=== PATIENT | male | born 1950 | race Caucasian/White ===

== ENCOUNTER 2020-04-21 18:13 | Inpatient (IN) | payer MEDICARE, OTHER ==
[~2020-04-21] VITALS: Ht 167.6 cm; Wt 92.1 kg
[2020-04-21 18:32] VITALS: BP 162/97
[2020-04-21] MEDS ORDERED: LISINOPRIL10 MG PO (18:41)
[2020-04-21] MEDS ORDERED: LEVO-T50 MCG PO (18:41)
[2020-04-21] MEDS ORDERED: SIMVASTATIN80 MG PO (18:41)
[2020-04-21] MEDS ORDERED: ASA81BEC PO (18:42)
[2020-04-21 19:05] LABS: ABSOLUTE BASOPHILS 0.1 thou/uL (0.0-0.2); ABSOLUTE EOSINOPHILS 0.2 thou/uL (0.0-0.7); ABSOLUTE LYMPHOCYTES 1.7 thou/uL (0.8-5.3); ABSOLUTE MONOCYTES 0.9 thou/uL (0.0-1.2); ABSOLUTE NEUTROPHILS 6.2 thou/uL (1.6-8.1); BASOPHILS 0.8 %; EOSINOPHILS 1.9 %; HEMATOCRIT 42.1 % (42.0-52.0); HEMOGLOBIN 14.2 gm/dL (14.0-18.0); LYMPHOCYTES 19.1 %; MCHC 33.7 g/dL (28.0-37.0); MCV 94.9 fL (80.0-100.0); MONOCYTES 9.6 %; MPV 8.4 fl. (7.2-11.1); NUCLEATED RBCS 0 /100WBC; PLATELET COUNT* 203 thou/uL (150-400); POLYS 68.6 %; RBC 4.43 mil/uL (4.50-6.00); RDW-CV 13.2 % (10.5-14.5); WBC 9.1 thou/uL (4.0-11.0)
[2020-04-21 19:19] LABS: CALCIUM 8.7 mg/dL (8.5-10.1); CREATININE 0.9 mg/dL (0.6-1.3); POTASSIUM 3.7 mmol/L (3.5-5.1)
[2020-04-21 19:23] LABS: ALBUMIN 3.8 g/dL (3.4-5.0); TOTAL BILIRUBIN 0.9 mg/dL (<0.1-1.0); TOTAL PROTEIN 7.1 g/dL (6.4-8.2)
[2020-04-21 21:00] VITALS: BP 139/76
[2020-04-21] MEDS ORDERED: LEVO-T100 MCG PO (21:46)
[2020-04-21] MEDS ORDERED: LOPRESSOR50 MG PO (21:47)
[2020-04-21 21:49] VITALS: BP 150/63
[2020-04-21] MEDS ORDERED: AMBIEN5 MG PO (22:12)
[2020-04-22] VITALS: BP 119/52
[2020-04-22 04:00] VITALS: BP 120/60
[2020-04-22 09:17] LABS: HEMATOCRIT 41.5 % (42.0-52.0); HEMOGLOBIN 13.9 gm/dL (14.0-18.0); MCH 31.7 pg (26.0-34.0); MCHC 33.5 g/dL (28.0-37.0); MCV 94.5 fL (80.0-100.0); MPV 8.2 fl. (7.2-11.1); RBC 4.4 mil/uL (4.50-6.00); RDW-CV 13.2 % (10.5-14.5); WBC 8.4 thou/uL (4.0-11.0)
[2020-04-22 09:26] LABS: CALCIUM 8.6 mg/dL (8.5-10.1); CREATININE 0.7 mg/dL (0.6-1.3); POTASSIUM 3.8 mmol/L (3.5-5.1)
[2020-04-22 10:15] VITALS: BP 136/75
[2020-04-22 12:30] VITALS: BP 144/66
[2020-04-22 16:33] VITALS: BP 139/70
[2020-04-22 19:25] VITALS: BP 126/59
[2020-04-23] VITALS: BP 119/68
[2020-04-23 04:00] VITALS: BP 142/65
[2020-04-23 08:00] VITALS: BP 148/69
[2020-04-23 12:00] VITALS: BP 126/58
--- NOTE | 2020-04-23 12:42 | EKG ---
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
[2020-04-23 16:00] VITALS: BP 112/66
[2020-04-23 20:00] VITALS: BP 149/73
[2020-04-24 00:41] VITALS: BP 118/59
[2020-04-24 04:00] VITALS: BP 141/70
[2020-04-24] MEDS ORDERED: NEBULIZER MISCELL (07:06)
[2020-04-24] MEDS ORDERED: PREDNISONE 10 M10 M1 PO (07:06)
[2020-04-24] MEDS ORDERED: IPRAT-ALBUT 0.5-3 ML INH (07:06)
[2020-04-24] MEDS ORDERED: LEVOFLOXACIN500 MG PO (07:06)
[2020-04-24 08:00] VITALS: BP 166/67
[2020-04-24 13:00] VITALS: BP 130/72
[2020-04-24 13:16] VITALS: BP 130/72
[2020-04-24 13:53] VITALS: BP 130/72
--- NOTE | 2020-04-25 07:50 | CON ---
[address] [address] CONSULTATION Name: PEE DURBIN Room: [address] IN M.R.#: [id number] Admission: 04/22/20 Attend Phys: Aniceto Almanza MD Discharge: 04/24/20 Date of : 48 Report #: [id number] THIS REPORT FOR: //name// cc: FAM - Family physician unknown FAM - Family physician unknown ~ DATE OF SERVICE: 04/22/2020 INDICATION: Chest pain. HISTORY OF PRESENT ILLNESS: The patient is a 69-year-old gentleman with history of coronary artery disease. He had myocardial infarction with percutaneous coronary intervention in 2000. After a failed stress test in 2008, he had percutaneous coronary intervention a second time. He has had no intervention since then. Stress testing last week showed evidence of apical infarct with no evidence of ischemia and mildly decreased left ventricular systolic function. The patient had atypical chest discomfort yesterday associated with acute onset of shortness of breath, lasting approximately 20-25 minutes. The symptoms improved with oxygen and breathing treatments. The patient was admitted to the hospital for further evaluation. Cardiac enzymes are unremarkable x3 sets. EKG shows sinus rhythm with left bundle-branch block, which is old. PAST MEDICAL HISTORY: 1. Coronary artery disease. 2. Chronic obstructive pulmonary disease. 3. History of appendectomy. 4. History of cholecystectomy. 5. Hyperlipidemia. 6. Hypertension. ALLERGIES: None documented. FAMILY HISTORY: Noncontributory. SOCIAL HISTORY: The patient quit smoking approximately 11 years ago. Drinks alcohol occasionally. REVIEW OF SYSTEMS: A 14-point review of systems as per HPI. PHYSICAL EXAMINATION: VITAL SIGNS: Stable. Blood pressure 136/75, pulse is 69 and regular. GENERAL: This is a pleasant gentleman in no distress. Mood and affect appropriate. HEENT: Extraocular muscles intact. [place] [address] CONSULTATION Name: PEE DURBIN Room: [address]#: [id number] Admission: 04/22/20 Attend Phys: Aniceto Almanza MD Discharge: 04/24/20 Date of : 48 Report #: [id number] NECK: Shows no jugular venous distention. There are no carotid bruits. CHEST: Reveals diminished breath sounds throughout with expiratory wheezes. CARDIOVASCULAR: Reveals a regular rhythm with normal S1 and S2. I do not appreciate gallop or murmur. ABDOMEN: Reveals a protuberant abdomen, soft and nontender. EXTREMITIES: Shows no edema. SKIN: Dry. LABORATORY DATA: A 12-lead EKG shows left bundle-branch block with sinus rhythm. Labs are reviewed. Troponins are less than 0.06 on 3 separate occasions. IMPRESSION AND RECOMMENDATIONS: 1. Atypical chest pain. No evidence that this is cardiac in origin. No further workup at this time. 2. Hypertension. Blood pressure adequately controlled on current regimen. 3. Dyslipidemia. Continue current statin agent. 4. Chronic obstructive pulmonary disease, per primary physician. The patient appears stable from a cardiac standpoint. We will sign off and available as needed. <ELECTRONICALLY SIGNED> By: Celso He MD, FACC 04/25/20 0750 1515 1922Celso He MD, FACC /nt
== END 2020-04-24 13:50 | disposition home or self-care (01) | DRG 189 ==
LOC: M.ERS 18:13 → M.TBA-ER 19:48 → M.2W 20:28
PROVIDERS: Internal Medicine; Physician Assistant; ADMIT Internal Medicine; ATTEND Internal Medicine
DX: J96.01 Acute respiratory failure with hypoxia (principal); J44.1 Chronic obstructive pulmonary disease with (acute) exacerbation; I25.10 Atherosclerotic heart disease of native coronary artery without angina pectoris; I10 Essential (primary) hypertension; E78.5 Hyperlipidemia, unspecified; R07.81 Pleurodynia; Z20.828 Contact with and (suspected) exposure to other viral communicable diseases; Z95.5 Presence of coronary angioplasty implant and graft; Z90.49 Acquired absence of other specified parts of digestive tract; Z79.82 Long term (current) use of aspirin; Z79.899 Other long term (current) drug therapy; Z87.891 Personal history of nicotine dependence; Z72.89 Other problems related to lifestyle

== ENCOUNTER 2020-12-25 20:54 | Inpatient (IN) | payer MEDICARE, OTHER ==
[~2020-12-25] VITALS: Ht 167.6 cm; Wt 85.7 kg
[~2020-12-25 20:54] MED LIST: AMBIEN5 MG PO; ASA81BEC PO; IPRAT-ALBUT 0.5-3 ML INH; LEVO-T100 MCG PO; LEVO-T50 MCG PO; LEVOFLOXACIN500 MG PO; LISINOPRIL10 MG PO; LOPRESSOR50 MG PO; NEBULIZER MISCELL; PREDNISONE 10 M10 M1 PO; SIMVASTATIN80 MG PO
[2020-12-25 21:27] LABS: ABSOLUTE BASOPHILS 0.1 thou/uL (0.0-0.2); ABSOLUTE EOSINOPHILS 0.1 thou/uL (0.0-0.7); ABSOLUTE LYMPHOCYTES 1.4 thou/uL (0.8-5.3); ABSOLUTE MONOCYTES 1.3 thou/uL (0.0-1.2); ABSOLUTE NEUTROPHILS 7.4 thou/uL (1.6-8.1); BASOPHILS 0.5 %; EOSINOPHILS 0.8 %; HEMATOCRIT 42.9 % (42.0-52.0); HEMOGLOBIN 14.2 gm/dL (14.0-18.0); LYMPHOCYTES 13.3 %; MCH 31.6 pg (26.0-34.0); MCHC 33.1 g/dL (28.0-37.0); MCV 95.3 fL (80.0-100.0); MONOCYTES 12.7 %; NUCLEATED RBCS 0 /100WBC; PLATELET COUNT* 209 thou/uL (150-400); POLYS 72.7 %; RBC 4.51 mil/uL (4.50-6.00); RDW-CV 13.6 % (10.5-14.5); WBC 10.3 thou/uL (4.0-11.0)
[2020-12-25 21:30] VITALS: BP 112/68
[2020-12-25 21:34] LABS: CALCIUM 8.8 mg/dL (8.5-10.1); CREATININE 0.8 mg/dL (0.6-1.3); POTASSIUM 3.5 mmol/L (3.5-5.1)
[2020-12-25 21:40] LABS: APTT 28.5 Seconds (25.0-31.3); PROTIME 10.9 Seconds (9.20-11.50)
[2020-12-25 21:45] LABS: ALBUMIN 3.6 g/dL (3.4-5.0); TOTAL BILIRUBIN 1.1 mg/dL (<0.1-1.0); TOTAL PROTEIN 6.9 g/dL (6.4-8.2)
[2020-12-25 23:34] VITALS: BP 128/73
[2020-12-25 23:45] VITALS: BP 133/71
[2020-12-26] VITALS (19 sets, daily range): BP systolic 131–157; BP diastolic 66–82
[2020-12-26 04:25] LABS: ANION GAP 11 mmol/L (7-16); BUN 12 mg/dL (7-18); CALCIUM 8.5 mg/dL (8.5-10.1); CHLORIDE 103 mmol/L (98-107); CHOLESTEROL 107 mg/dL (<200); CO2 26 mmol/L (21-32); CREATININE 0.7 mg/dL (0.6-1.3); GLUCOSE 107 mg/dL (70-99); HDL CHOLESTEROL 45 mg/dL (>40); LDL CHOLESTEROL 52 mg/dL (<100); POTASSIUM 3.5 mmol/L (3.5-5.1); SODIUM 140 mmol/L (136-145); TC:HDL 2.4 Ratio (Not establshd); TRIGLYCERIDE 53 mg/dL (<150); TROPONIN-I LEVEL 0.27 ng/mL (<0.06); VLDL 11 mg/dL (<40)
[2020-12-26 04:29] LABS: SERUM ASSESSMENT Clear
[2020-12-26 04:30] LABS: ABSOLUTE EOSINOPHILS 0.1 thou/uL (0.0-0.7); ABSOLUTE LYMPHOCYTES 1.4 thou/uL (0.8-5.3); ABSOLUTE MONOCYTES 1.3 thou/uL (0.0-1.2); ABSOLUTE NEUTROPHILS 6.4 thou/uL (1.6-8.1); BASOPHILS 0.5 %; EOSINOPHILS 0.6 %; HEMATOCRIT 38.6 % (42.0-52.0); HEMOGLOBIN 13.2 gm/dL (14.0-18.0); LYMPHOCYTES 15.1 %; MCH 32.8 pg (26.0-34.0); MCHC 34.2 g/dL (28.0-37.0); MCV 95.8 fL (80.0-100.0); MONOCYTES 14.2 %; NUCLEATED RBCS 0 /100WBC; PLATELET COUNT* 187 thou/uL (150-400); POLYS 69.6 %; RBC 4.03 mil/uL (4.50-6.00); RDW-CV 13.6 % (10.5-14.5); WBC 9.2 thou/uL (4.0-11.0)
--- NOTE | 2020-12-26 08:37 | CARD ---
[address] [address] CARDIAC CATH REPORT Name: PEE DURBIN Room: [address] ADM IN M.R.#: [id number] Admission: 12/25/20 Attend Phys: Paul Maguire MD, F Discharge: Date of : 48 Report #: [id number] THIS REPORT FOR: cc: FAM - Family physician unknown FAM - Family physician unknown Paul Maguire MD [facility] ~ APPROVED REPORT Study performed: 12/25/2020 21:23:09 Patient Details Patient Status: In-Patient Room #: The patient is a 70 year-old male Procedures Performed cath pci Indication Abnormal ECG, Dyspnea, Unstable angina , Chest pain Risk Factors Hypercholesterolemia, Coronary Artery DiseaseHypertension Previous Procedures/Diagnoses Previous PCI Admission/Lab Medications/Medications given during procedure Glycoprotein IllbIlla Inhibitors, Heparin Unfract. Procedure Narrative The patient was brought emergently to the Cardiac Catheterization Laboratory and was prepped and draped in a sterile manner. The right femoral was infiltrated with 1% Lidocaine subcutaneous anesthesia. IV conscious sedation was used throughout procedure with appropriate monitoring and was performed in the presence of a registered nurse who was an independent trained observer other than the physician performing the procedure. A 6 sheath was inserted into the right femoral artery. Coronary angiography was performed using coronary diagnostic catheters. The right coronary system was accessed and visualized with a Diagnostic catheter. The left coronary system was accessed and visualized with a Diagnostic catheter. The left ventricle was accessed and visualized with a Diagnostic catheter. Left ventricular/Aortic Valve gradient assessed via catheter [address] [address] CARDIAC CATH REPORT Name: PEE DURBIN Room: [address] IN .R.#: [id number] Admission: 12/25/20 Attend Phys: Paul Maguire MD, F Discharge: Date of : 48 Report #: [id number] pullback. Left ventriculogram was performed in BLOUNT projection. Closure device was deployed with a 6 Fr Angioseal. The patient tolerated the procedure well and there were no complications associated with the procedure. There was no hematoma. Because of the abnormal takeoff of the RCA from the right coronary cusp, unable to cannulate the RCA with a jr4 catheter. A modified right amplatz catheter was used to engage the RCA. Coronary Angiography The patient's coronary anatomy is right dominant. Diagnostic Cath Left Main 0% stenosis LAD stent in the mid LAD that straddled the takeoff of the second diagonal branch had a 90% restenosis Diagonal 2 medium sized vessel that arose from within the stent in the mid LAD Circumflex stent in the mid circumflex had a 30% restenosis Right Coronary 30% proximal and 40% mid stenosis noted Left Ventriculography The left ventricular ejection fraction is estimated to be 40-45%. Left ventricular wall motion abnormalities are present. There is no mitral insufficiency. moderate hypokinesis of the inferior wall Hemodynamics The left ventricular end diastolic pressure is 14 mmHg. There was no gradient across the aortic valve upon pullback. Pullback from the left ventricle to the aorta revealed no gradient across the aortic valve. PCI Technique Lesion Anticoagulation was achieved with Heparin. bolus of IV aggrastat given Percutaneous coronary intervention was performed on the mid left anterior descending artery segment. The lesion stenosis prior to intervention was 90% with LAURA 3 flow. A xblad4.0 Guide Catheter was used to engage the lm ostium. A bmw Interventional Guidewire was used to cross the lesion. BALLOON DILATION A Balloon catheter 2.5 x 12 mm was inserted and inflated up to 16atm for 15seconds. Repeat angiography revealed the following post-dilatation results: 40% [place] [address] CARDIAC CATH REPORT Name: PEE DURBIN Room: [address] IN [facility].#: [id number] Admission: 12/25/20 Attend Phys: Paul Maguire MD, F Discharge: Date of : 48 Report #: [id number] STENT DEPLOYMENT A drug-eluting stent 3.5 x 30 mm was inserted and inflated up to 20atm for 15seconds. Repeat angiography revealed the following post-stent deployment results: 0% stenosis. Noted to have a 90% stenosis of the ostium of the second diagonal branch secondary to plaque shift while inserting the stent in the LAD. Patient was given 200 mcg. IC nitroglycerin. Final angiography reveals 0 % stenosis with LAURA 3 flow. PCI Technique Lesion 2 Percutaneous Coronary Intervention was performed on the second diagonal branch segment. Percutaneous coronary intervention was performed on the second diagonal branch segment. The lesion stenosis prior to intervention was 90% with LAURA 3 flow. A xblad4.0 Guide Catheter was used to engage the lm ostium. A [employer] Interventional Guidewire was used to cross the lesion. Balloon Dilation A Balloon catheter 2.5 x 8 mm was inserted and inflated up to 16atm for 15seconds. Repeat angiography revealed the following post-dilatation results: 0% stenosis. Final angiography reveals 0 % stenosis with LAURA 3 flow. Conclusion 1. 90% restenosis of a stent in the mid LAD 2. no restenosis of a stent in the mid circumflex artery. 3. successful placement of a drug eluting stent in the mid LAD 4. narrowing of the ostium of the second diagonal branch after LAD stent placement secondary to plaque shift into the second diagonal artery successfully treated by PTCA of the ostium. 5. LVEF 40-45% Recommendations Cardiac Rehabilitation Referral Aggressive Medical Therapy Medications Administered Clopidogrel <ELECTRONICALLY SIGNED> By: Paul Maguire MD, [facility] 12/26/20 0837 0837Dabenjy Maguire MD, FAC /INF
--- NOTE | 2020-12-26 10:48 | EKG ---
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1950 Requested By: Daija Martinez Order Number: [id number] MD: Paul Maguire Measurements Intervals [place] Rate: 129 P: SD: QRS: 43 QRSD: 141 T: 61 QT: 344 QTc: 504 Interpretive Statements sinus tachycardia Paired ventricular premature complexes pac's Left bundle branch block Compared to ECG 04/21/2020 18:27:45 Ventricular and supraventricular premature complex(es) now present Sinus rhythm no longer present Electronically Signed On 12-26-2020 10:48:12 CDT by Paul Maguire [email or web address] <ELECTRONICALLY SIGNED> By: Paul Maguire MD, FAC 12/26/20 1048 02 02 Paul Maguire MD, [facility] /EPI
--- NOTE | 2020-12-26 10:49 | EKG ---
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1950 Requested By: Daija Martinez Order Number: [id number] MD: Paul Maguire Measurements Intervals [place] Rate: 122 P: 87 [place]: 149 QRS: 38 QRSD: 138 T: 51 QT: 349 QTc: 498 Interpretive Statements Sinus tachycardia ventricular premature complexes LBBB Baseline wander in lead(s) V6 Compared to ECG 12/25/2020 21:03:44 no change Electronically Signed On 12-26-2020 10:49:21 CDT by Paul Maguire [email or web address] <ELECTRONICALLY SIGNED> By: Paul Maguire MD, [facility] 12/26/20 1049 13 13 Paul Maguire MD, FAC /EPI
--- NOTE | 2020-12-26 11:37 | EKG ---
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
--- NOTE | 2020-12-26 11:41 | H ---
[place] [address] HISTORY AND PHYSICAL Name: PEE DURBIN Room: [address] ADM IN [place].#: [id number] Admission: 12/25/20 Attend Phys: Paul Maguire MD, F Discharge: Date of : 48 Report #: [id number] THIS REPORT FOR: cc: FAM - Family physician unknown FAM - Family physician unknown Paul Maguire MD [facility] ~ DATE OF SERVICE: 12/25/2020 CARDIOLOGY STAT HISTORY AND PHYSICAL HISTORY OF PRESENT ILLNESS: The patient is a 70-year-old single white male who came to the emergency room complaining of chest pain. Unfortunately, not a lot of his old records available. However, he states that in 2008, he had a heart attack and had a stent placed at [place], [place]. He had an abnormal stress test apparently had another stent placed a year later. He has done well since that time, although he is not very active. He has actually been admitted here to [place] in the past. He was admitted here last April with atypical chest pain and shortness of breath. Recently, the patient denied any increased shortness of breath, although he has a cough. He denies any palpitations, syncope, recent fever, swelling. This evening, he felt a heaviness in his chest, became short of breath. He called EMS and brought here to [place]. He was noted to have an abnormal ECG and cardiology consultation was requested. At this time, his pain is improved. He was given morphine and nitroglycerin in the emergency room. PAST MEDICAL HISTORY: He has had previous appendectomy, cholecystectomy, hypertension, hyperlipidemia. CURRENT MEDICATIONS: Consists of nebulized treatment for COPD, simvastatin, Synthroid, metoprolol, lisinopril, aspirin. ALLERGIES: He has no known drug allergies. FAMILY HISTORY: His mother when she was 38. SOCIAL HISTORY: He is , lives by himself in [place]. Quit smoking 10 years ago. Occasionally drinks alcohol. REVIEW OF SYSTEMS: He is overweight being 5 feet 8 inches, 250 pounds. He had a previous history of stroke affecting his right side of his body. No history of asthma, although he does have COPD and uses inhaler. No history of liver disease, kidney disease, cancer, chronic skin condition, psychiatric illness. PHYSICAL EXAMINATION: GENERAL: Revealed an obese elderly male who appeared in no acute distress. VITAL SIGNS: He had a blood pressure of 110/70, pulse is 100, [place] [address] HISTORY AND PHYSICAL Name: PEE DURBIN Room: [address] IN [facility]#: [id number] Admission: 12/25/20 Attend Phys: Paul Maguire MD, F Discharge: Date of : 48 Report #: [id number] unlabored. HEENT: He was anicteric. Conjunctivae are pink. Mucosa moist. NECK: Veins do not appear distended. No carotid bruits. Neck is supple. CHEST: Clear to auscultation. HEART: Regular rate and rhythm without murmur. ABDOMEN: Obese. EXTREMITIES: Had no pitting edema. Posterior tibial pulse 2+ bilaterally. SKIN: Cool and dry. NEUROLOGIC: Nonfocal. LABORATORY DATA: His ECG on admission showed what appeared to represent a sinus rhythm with frequent PVCs and a left bundle-branch block. Previous workup, he had a chest x-ray in the emergency room that showed a calcified aortic knob, clear lung murray, normal heart size. His laboratory: Sodium 142, creatinine 0.8. His liver function studies were normal. Troponins less than 0.06. BNP 454. White blood cell count 10.3, hemoglobin 14.2. His COVID antigen stat test was negative. IMPRESSION AND RECOMMENDATIONS: 1. Unstable angina. Previous stent. Recommend urgent cardiac catheterization. 2. Left bundle branch block. 3. Premature ventricular contractions. 4. Hypertension. The patient is on a beta gavin and LEIGHANN inhibitor. 5. Hyperlipidemia. The patient is on a statin drug. 6. Obesity. 7. Chronic obstructive pulmonary disease. The patient uses inhaler. 8. Previous stroke. The patient does take an aspirin a day. Critical care time was from 10:00 p.m. to 11:30 p.m. for a total of 90 minutes of critical care time. <ELECTRONICALLY SIGNED> By: Paul Maguire MD, [facility] 12/26/20 1141 2205 2226Paul Maguire MD, FAC /nt
[2020-12-26 18:59] LABS: CALCIUM 9.2 mg/dL (8.5-10.1); CREATININE 0.8 mg/dL (0.6-1.3); POTASSIUM 3.7 mmol/L (3.5-5.1)
[2020-12-26 19:02] LABS: MAGNESIUM 1.7 mg/dL (1.8-2.4); PHOSPHORUS* 3.2 mg/dL (2.5-4.9)
[2020-12-27] MEDS ORDERED: CLOPIDOGREL75 MG PO (14:03)
[2020-12-27] MEDS ORDERED: NITROGLYCERIN0.4 MG SUBLING (14:03)
[2020-12-27 14:41] VITALS: BP 122/74
--- NOTE | 2020-12-28 08:33 | D ---
[address] [address] DISCHARGE SUMMARY Name: PEE DURBIN Room: [address] IN M.R.#: [id number] Admission: 12/25/20 Attend Phys: Paul Maguire MD, F Discharge: 12/27/20 Date of : 48 Report #: [id number] THIS REPORT FOR: cc: FAM - Family physician unknown FAM - Family physician unknown Paul Maguire MD [facility] ~ DATE OF DISCHARGE: 12/27/2020 DISCHARGE DIAGNOSES: 1. Unstable angina. 2. Coronary artery disease. 3. Chronic obstructive pulmonary disease. 4. Hypertension. CONSULTANTS: None. PROCEDURES: Emergent left heart catheterization with placement of drug-eluting stent in the left anterior descending artery via the femoral approach. HISTORY OF PRESENT ILLNESS: The patient is a 70-year-old single white male who was brought to the Emergency Room complaining of chest pain. Unfortunately, no old records are available. In 2008, he had a heart attack and had a stent placed in his coronary arteries in [place], [place]. He had normal stress test and a year later had another stent placed in [place], [place]. He has done well since that time, is not very active. He denies any recent chest pain. He does have a history of COPD and has occasional shortness of breath. On the evening of admission, he felt heavy in his chest, became short of breath. He called Paramedics. He was noted to have an abnormal ECG and was asked to see him for further evaluation. When I saw him in the Emergency Room, his pain is actually improved. He denies any palpitations, syncope or bleeding. No trauma to his chest. PAST MEDICAL HISTORY: He has had previous appendectomy, cholecystectomy, hysterectomy, hypertension, hyperlipidemia. MEDICATIONS ON ADMISSION: He has nebulizer treatment for COPD. He is on simvastatin, Synthroid, metoprolol, lisinopril, aspirin. ALLERGIES: He had no known drug allergies. PHYSICAL EXAMINATION: VITAL SIGNS: On admission; his blood pressure 110/70, his pulse is 100, respirations unlabored. CHEST: Distant breath sounds. CARDIOVASCULAR: Regular rate and rhythm. No murmur. ABDOMEN: [place] [address] DISCHARGE SUMMARY Name: PEE DURBIN Room: [address]#: [id number] Admission: 12/25/20 Attend Phys: aPul Maguire MD, F Discharge: 12/27/20 Date of : 48 Report #: [id number] EXTREMITIES: No pitting edema. ECG showed a sinus rhythm with a left bundle branch block and frequent PVCs. Chest x-ray, normal heart size, clear lung murray. Creatinine 0.8. Liver function studies were normal. Troponin less than 0.06. Hemoglobin 14.2. HOSPITAL COURSE: The patient was seen in the Emergency Room. He was noted to have a chronic left bundle branch block. Therefore, a STEMI cannot be excluded. It was decided to take him urgently to the cardiac catheterization lab. I performed cardiac catheterization from the right femoral artery. Results showed a stent in the mid LAD that had 90% restenosis. The stent in the circumflex had no restenosis. The right coronary artery had only 40% stenosis. Ejection fraction was 45%. He was felt to have restenosis of the stent in the LAD. He was then given heparin and Aggrastat. I placed a new drug-eluting stent in the mid LAD. During placement of stent, there was compromise of the second diagonal branch that now arose from within the stent. I performed balloon angioplasty of the ostium. At the end of the procedure, there was no residual stenosis. An Angio-Seal was placed in his right femoral artery. He was loaded with Plavix. Fortunately, he had no further chest pain, arrhythmias or bleeding. There was no hematoma in the right groin. He did complain of shortness of breath after admission, it was felt to be secondary to COPD. His breathing improved. At the time of discharge, the patient was ambulating, had no further complaints. At the time of discharge, he had a blood pressure 120/70, pulse is 90. He was afebrile. Additional laboratory include a repeat creatinine of 0.8. His peak troponin was 0.27, cholesterol 107, triglyceride 53, HDL 45, LDL 52. Follow up hemoglobin was 13.2. Follow up ECG again showed a sinus rhythm with a left bundle branch block, which was noted to be old. At the time of discharge, the patient is ambulating, had no further complaints. He was seen by cardiac rehabilitation. At the time of discharge, he had blood pressure 120/70, pulse was 100, he was afebrile. He was discharged to continue his home medications that consist of aspirin 81 mg a day, nebulized inhaler, Synthroid 150 mcg a day, lisinopril 10 mg a day, metoprolol tartrate 50 mg twice a day. Since his LDL was less than 70, he is to continue simvastatin 80 mg at bedtime. He does take Ambien as needed for sleep. He did have TSH checked on his hospitalization, which was low at 0.1, although free T4 was normal at 1.11. He was discharged to return to his primary care doctor in [place], [place]. I encouraged him to enroll in cardiac rehabilitation. I also suggested that he obtained a primary care physician in the [place] area. Because of a previous stroke, he did undergo carotid Doppler study that showed moderate plaque with stenosis of 50-69% stenosis. I have recommended a repeat carotid Doppler study in 6 months. [facility] [address] [facility] [address] DISCHARGE SUMMARY Name: GIFTYPEE Room: [address] IN [place].#: [id number] Admission: 12/25/20 Attend Phys: Paul Maguire MD, F Discharge: 12/27/20 Date of : 48 Report #: [id number] I did recommend he start an exercise program and he was scheduled to return to see me in the Cardiology Clinic in [place] on 02/13. <ELECTRONICALLY SIGNED> By: Paul Maguire MD, FACC 12/28/20 0833 1253 2036Paul Maguire MD, FAC /nt
== END 2020-12-27 17:04 | disposition home or self-care (01) | DRG 247 ==
LOC: M.ERS 20:54 → M.CL 21:30 → M.TBA-CV 21:30 → M.ICU 23:29 → M.TBA-CV 23:29 → M.ICU 23:42 → M.2W 12-26 22:03
PROVIDERS: Internal Medicine Cardiovascular Disease; Personal Emergency Response Attendant; ADMIT Internal Medicine Cardiovascular Disease; ATTEND Internal Medicine Cardiovascular Disease
PROC: 02703ZZ Dilation of Coronary Artery, One Artery, Percutaneous Approach (ICD-10-PCS; principal; 2020-12-25)
PROC: 3E033PZ Introduction of Platelet Inhibitor into Peripheral Vein, Percutaneous Approach (ICD-10-PCS; principal; 2020-12-25)
PROC: B215YZZ Fluoroscopy of Left Heart using Other Contrast (ICD-10-PCS; principal; 2020-12-25)
PROC: B211YZZ Fluoroscopy of Multiple Coronary Arteries using Other Contrast (ICD-10-PCS; principal; 2020-12-25)
PROC: 4A023N7 Measurement of Cardiac Sampling and Pressure, Left Heart, Percutaneous Approach (ICD-10-PCS; principal; 2020-12-25)
PROC: 027034Z Dilation of Coronary Artery, One Artery with Drug-eluting Intraluminal Device, Percutaneous Approach (ICD-10-PCS; principal; 2020-12-25)
DX: I25.110 Atherosclerotic heart disease of native coronary artery with unstable angina pectoris (principal); I50.22 Chronic systolic (congestive) heart failure; I11.0 Hypertensive heart disease with heart failure; J44.9 Chronic obstructive pulmonary disease, unspecified; E78.5 Hyperlipidemia, unspecified; I44.7 Left bundle-branch block, unspecified; E66.9 Obesity, unspecified; Z20.822 Contact with and (suspected) exposure to COVID-19; Z95.5 Presence of coronary angioplasty implant and graft; Z90.49 Acquired absence of other specified parts of digestive tract; Z79.899 Other long term (current) drug therapy; Z79.82 Long term (current) use of aspirin; Z68.30 Body mass index [BMI] 30.0-30.9, adult; Z86.73 Personal history of transient ischemic attack (TIA), and cerebral infarction without residual deficits

== ENCOUNTER 2021-01-17 16:13 | Observation (INO) | payer MEDICARE, OTHER ==
[~2021-01-17] VITALS: Ht 167.6 cm; Wt 91.2 kg
[~2021-01-17 16:13] MED LIST changes: +CLOPIDOGREL75 MG PO; +NITROGLYCERIN0.4 MG SUBLING
[2021-01-17 16:15] VITALS: BP 164/99
[2021-01-17 16:55] LABS: ABSOLUTE BASOPHILS 0.1 thou/uL (0.0-0.2); ABSOLUTE EOSINOPHILS 0.1 thou/uL (0.0-0.7); ABSOLUTE LYMPHOCYTES 0.9 thou/uL (0.8-5.3); ABSOLUTE MONOCYTES 1.4 thou/uL (0.0-1.2); ABSOLUTE NEUTROPHILS 12.7 thou/uL (1.6-8.1); BASOPHILS 0.3 %; EOSINOPHILS 0.9 %; HEMATOCRIT 43.8 % (42.0-52.0); HEMOGLOBIN 14.5 gm/dL (14.0-18.0); MCH 31.3 pg (26.0-34.0); MCV 94.8 fL (80.0-100.0); MONOCYTES 9.4 %; MPV 7.7 fl. (7.2-11.1); NUCLEATED RBCS 0 /100WBC; PLATELET COUNT* 324 thou/uL (150-400); POLYS 83.4 %; RBC 4.62 mil/uL (4.50-6.00); WBC 15.2 thou/uL (4.0-11.0)
[2021-01-17 17:07] LABS: CALCIUM 9.5 mg/dL (8.5-10.1); CREATININE 0.9 mg/dL (0.6-1.3); POTASSIUM 4.6 mmol/L (3.5-5.1)
[2021-01-17 17:18] LABS: ALBUMIN 3.5 g/dL (3.4-5.0); MAGNESIUM 1.9 mg/dL (1.8-2.4); TOTAL BILIRUBIN 1.6 mg/dL (<0.1-1.0); TOTAL PROTEIN 7.9 g/dL (6.4-8.2)
[2021-01-17 22:35] VITALS: BP 107/73; BP 115/76
[2021-01-18 01:10] VITALS: BP 107/73
[2021-01-18 02:00] VITALS: BP 136/66
--- NOTE | 2021-01-18 07:20 | NUR ---
CHANGE OF SHIFT REPORT GIVEN PATIENT SEEN AT BEDSIDE, IN BED RESTING ASSUMED PATIENT CARE
[2021-01-18 08:00] VITALS: BP 117/69
--- NOTE | 2021-01-18 08:06 | NUR ---
ASSUMED CARE OF PT AFTER REPORT AT 1930. PT A&OX4. VSS. PHYSICAL ASSESSMENT COMPLETED AND CHARTED. PT ON O2 AT 4L NC. PT TRACING SR/ST ON TELE. PT UPSTANDBY. PT COMPLAINED OF LEFT RIB PAIN & REQUESTED BREATHING TREATMENT-DR WALTERS MADE AWARE WITH NEW ORDER. FALL PRECAUTIONS IN PLACE. CALL LIGHT WITHIN REACH.
--- NOTE | 2021-01-18 08:10 | NUR ---
RECEIVED REPORT FROM ED RN. PT TRANSFERRED TO 206. PT A&OX4. VSS. PHYSICAL ASSESSMENT COMPLETED AND CHARTED. PT ON O2 AT 4L NC. PT TRACING SR/ST ON TELE. PT COMPLAINED OF LEFT RIB PAIN & REQUESTED BREATHING TREATMENT-DR WALTERS MADE AWARE WITH NEW ORDER. FALL PRECAUTIONS IN PLACE. CALL LIGHT WITHIN REACH.
--- NOTE | 2021-01-18 09:42 | EKG ---
[place] [address] ELECTROCARDIOGRAM REPORT Name: PEE DURBIN Room: [address]#: [id number] Admission: 01/17/21 Attend Phys: Sonja Sherman, Discharge: Date of : 48 Date of Service: 01/17/21 1620 Report #: [id number] THIS REPORT FOR: //name// [facility] ED Test Date: 2021-01-17 Test Time: 16:20:47 Pat Name: PEE DURBIN Department: Room: [facility] Gender: M Child Specialist: ROSEANN : 1950 Requested By: Juancarlos Isbell Order Number: [id number] MD: Paul Maguire Measurements Intervals [place] Rate: 110 P: 63 MS: 145 QRS: -40 QRSD: 138 T: 83 QT: 369 QTc: 500 Interpretive Statements Sinus tachycardia Left bundle branch block Compared to ECG 12/26/2020 06:43:36 No significant changes Electronically Signed On 01-18-2021 9:42:26 CDT by Paul Maguire [email or web address] <ELECTRONICALLY SIGNED> By: Paul Maguire MD, FAC 01/18/21 0942 1620 1620 Paul Maguire MD, [facility] /EPI
[2021-01-18] MEDS ORDERED: PREDNISONE 10 M10 M1 PO (10:37)
[2021-01-18 12:00] VITALS: BP 100/66
[2021-01-18] MEDS ORDERED: IBUPROFEN 600600 M1 PO (13:01)
--- NOTE | 2021-01-18 15:11 | 2DMMODE ---
[facility] [address] [place] [address] 2 D/M-MODE ECHOCARDIOGRAM Name: PEE DURBIN Room: [address] MJorge#: [id number] Admission: 01/17/21 Attend Phys: Sonja Sherman, Discharge: Date of : 48 Date of Service: 01/18/21 1511 Report #: [id number] THIS REPORT FOR: cc: FAM - No family physician/PCP FAM - No family physician/PCP Celso He MD [facility] ~ APPROVED REPORT Study performed: 01/18/2021 10:17:02 EXAM: Limited 2D Echocardiogram BSA: 2.00 Indications Chest Pain Assess for effusion Left Ventricle The left ventricle is normal size. There appears to be mild hypokinesis of the anterior wall. There is left ventricular systolic dyssynergy consistent with underlying bundle branch block. Mild concentric left ventricular hypertrophy. Left ventricular systolic function is mildly decreased. LVEF is 45-50%. Right Ventricle The right ventricle is normal size. The right ventricular systolic function is normal. Atria The left atrium size is normal. The right atrium size is normal. Aortic Valve The aortic valve is normal in structure. Mitral Valve The mitral valve is normal in structure. Tricuspid Valve The tricuspid valve is normal in structure. Pulmonic Valve Pulmonic valve is not well visualized. [facility] [address] [place] [address] 2 D/M-MODE ECHOCARDIOGRAM Name: PEE DURBIN Room: [address] M.R.#: [id number] Admission: 01/17/21 Attend Phys: Sonja Sherman, Discharge: Date of : 48 Date of Service: 01/18/21 1511 Report #: [id number] Great Vessels The aortic root is normal in size. IVC is normal in size and collapses >50% with inspiration. Pericardium Trace pericardial effusion. <Conclusion> The left ventricle is normal size. Mild concentric left ventricular hypertrophy. Left ventricular systolic function is mildly decreased. LVEF is 45-50%. There appears to be mild hypokinesis of the anterior wall. There is left ventricular systolic dyssynergy consistent with underlying bundle branch block. IVC is normal in size and collapses >50% with inspiration. Trace pericardial effusion. <ELECTRONICALLY SIGNED> By: Celso He MD, FACC 01/18/211510 10 10 Celso He MD, FACC /INF
[2021-01-18 16:20] VITALS: BP 100/66
--- NOTE | 2021-01-18 17:44 | NUR ---
DISCHARGE TO HOME DC INSTRUCTIONS GIVEN AND COPIES GIVEN IV AND HEART MONITOR REMOVED PERSONAL BELONGINGS RETURNED OXYGEN REMOVED AND O2 SATS 95% RA NO NEED FOR CONTINUED OXYGEN PATIENT ASSISTED OUT VIA WC GOOD CONDITION TO CAR
== END 2021-01-18 17:40 | disposition home or self-care (01) ==
LOC: M.ERS 16:13 → M.TBA-ER 18:35 → M.2W 01-18 01:22
PROVIDERS: Emergency Medicine Emergency Medical Services; ADMIT Internal Medicine; ATTEND Internal Medicine
DX: J42 Unspecified chronic bronchitis (principal); J44.1 Chronic obstructive pulmonary disease with (acute) exacerbation; Z20.822 Contact with and (suspected) exposure to COVID-19; K21.9 Gastro-esophageal reflux disease without esophagitis; I10 Essential (primary) hypertension; I50.9 Heart failure, unspecified; E78.00 Pure hypercholesterolemia, unspecified; Z86.73 Personal history of transient ischemic attack (TIA), and cerebral infarction without residual deficits; Z79.899 Other long term (current) drug therapy